=== PATIENT | male | born 1940 | race Hispanic/Latino ===

== ENCOUNTER 2016-12-19 06:26 | Day surgery (SDC) | payer MEDICARE ==
[~2016-12-19 06:26] MED LIST: ANCEF/STERILE WATER 2 GM/20 ML 2 GM/20 ML SYRINGE IV NR; DILAUDID ONE; DIPRIVAN 10 MG/ML IV ONE; NACL 0.9% 1000 ML 1,000 ML IV SCH; VERSED ONE
[2016-12-19 07:10] LABS: Hematocrit 40.3 % (35.5-45.6); Hemoglobin 13.9 gm/dl (11.8-15.2); Mean Corpuscular HGB Conc 34 % (32-34); Mean Corpuscular Hemoglobin 34 pg (28-32); Mean Corpuscular Volume 98 fl (84-94); Platelet Count 186 K/mm3 (140-440); Red Blood Count 4.11 M/mm3 (3.65-5.03); Red Cell Distribution Width 12.3 % (13.2-15.2); White Blood Count 7.7 K/mm3 (4.5-11.0)
[2016-12-19 07:21] LABS: INR 1.04 (0.87-1.13)
[2016-12-19 07:22] LABS: Partial Thromboplastin Time 28.3 Sec. (24.2-36.6)
[2016-12-19 08:09] LABS: BUN/Creatinine Ratio 17.14; Calcium 9.8 mg/dL (8.4-10.2); Chloride 99.3 mmol/L (98-107); Potassium 4.4 mmol/L (3.6-5.0)
[2016-12-19] MEDS ORDERED: SUBLIMAZE ONE (08:18)
[2016-12-19] MEDS ORDERED: VERSED ONE (08:18)
[2016-12-19] MEDS ORDERED: DIPRIVAN 10 MG/ML IV ONE ×5 (08:18→08:31)
--- NOTE | 2016-12-19 08:50 | Anesthesia Consultation ---
Anesthesia Consult and Med Hx Date of service: 12/19/16 - Airway Anesthetic Teeth Evaluation: Good ROM Head & Neck: Adequate Mental/Hyoid Distance: Adequate Mallampati Class: Class II Intubation Access Assessment: Probably Good - Pulmonary Exam CTA: Yes - Cardiac Exam Cardiac Exam: RRR - Pre-Operative Health Status ASA Pre-Surgery Classification: ASA3 Proposed Anesthetic Plan: MAC - Pulmonary Hx Smoking: No - Cardiovascular System Hx Hypertension: Yes (10 years ago) Hx Coronary Artery Disease: Yes Hx Heart Attack/AMI: No Hx Peripheral Vascular Disease: Yes - Central Nervous System Hx Psychiatric Problems: No - Gastrointestinal Hx Gastroesophageal Reflux Disease: Yes - Endocrine Hx Non-Insulin Dependent Diabetes: Yes - Hematic Hx Anemia: No - Other Systems Hx Cancer: No - Additional Comments Anesthesia Medical History Comments: Myasthenia Gravis
--- NOTE | 2016-12-19 08:51 | Anesthesia Day of Surgery ---
Anesthesia Day of Surgery - Day of Surgery Patient Examined: Yes Patient H&P Reviewed: Yes Patient is NPO: Yes Beta Blockers: Yes
[2016-12-19] MEDS ORDERED: HEPARIN 10,000 UNITS/10 ML ONE (09:01)
[2016-12-19] MEDS ORDERED: NEO SYNEPHRINE/NS Syringe(OR USE) IV ONE (09:01)
[2016-12-19] MEDS ORDERED: HEPARIN/NS 5000 UNIT/500ML(CATH LAB) 1,000 ML IR ONE (09:08)
[2016-12-19] MEDS ORDERED: ANCEF/STERILE WATER 2 GM/20 ML 2 GM/20 ML SYRINGE IV ONE (09:08)
[2016-12-19] MEDS: HEPARIN 10,000 UNITS/10 ML ONE ×5 (09:13→11:00)
[2016-12-19] MEDS: XYLOCAINE 1%/ EPI 1:100,000 INFILTRATI ONE ×2 (09:13→09:20)
[2016-12-19] MEDS ORDERED: CALAN ONE (09:47)
[2016-12-19] MEDS ORDERED: NITROGLYCERIN SYRINGE 3 ML ONE ×2 (09:48→09:55)
[2016-12-19] MEDS ORDERED: TRIDIL DRIP 50MG/250ML 0 MG/0 ML BOTTLE ONE (09:53)
[2016-12-19] MEDS ORDERED: NITRO-BID 2% TP ONE (12:11)
--- NOTE | 2016-12-19 12:49 | Post Anesthesia Evaluation ---
- Post Anesthesia Evaluation Patient Participated: Yes Airway Patent: Yes Stable Respiratory Function: Yes Nausea/Vomiting: No Temp > 96.8F: Yes Pain Manageable: Yes Adequeate Hydration: Yes Anesthesia Complications: No Block Receding Appropriately: Not Applicable Patient on Ventilator: No
[2016-12-19] MEDS ORDERED: MORPHINE IV ONE (12:52)
--- NOTE | 2016-12-19 13:07 | Operative Report ---
Operative Report Operative Report: EXAM: 1. Ultrasound-guided access of the right common femoral artery, antegrade 2. Angiography of the right lower extremity 3. Ultrasound-guided access of the right posterior tibial artery, retrograde 4. Flossing of the posterior tibial artery 5. Angioplasty of the posterior tibial artery with a 3 mm angioplasty balloon 6. Angioplasty of the lateral plantar artery and distal posterior tibial artery with a 2.5 mm angioplasty balloon 7. Angioplasty of the distal popliteal artery with a 5 mm angioplasty balloon and subsequently a 6 mm drug-coated balloon 8. Stenting of the proximal posterior tibial artery with a 3 mm x 38 mm resolute drug eluting stent 9. Angioplasty of the posterior tibial artery with a 3 mm angioplasty balloon 10. Closure of the arteriotomy with a 6 Tongan Angio-Seal DATE: 12/19/16 [employer] TEACHER: VIKA GOLDMAN MD INDICATION: Critical limb ischemia of the right lower extremity with gangrene of the right first digit MEDICATIONS: Please see anesthesia report for full details. DEVICES: 2.5 mm angioplasty balloon 3 mm angioplasty balloon 5 mm angioplasty balloon 6 mm drug-coated balloon 3 mm x 38 mm resolute drug-eluting stent CONTRAST: 60 mL of nonionic contrast PROCEDURE: The risks, benefits, and alternatives were discussed with the patient; written informed consent was obtained. The patient's groins were prepped and draped in a sterile fashion in the patient 's right foot was prepped and draped in a sterile fashion. Under direct ultrasound guidance, the right common femoral artery was evaluated. The right common femoral artery was patent. Under direct ultrasound guidance, a 21-gauge micropuncture needle was used to access the right common femoral artery. 0.018 inch wire was passed into the superficial femoral artery. Needle was exchanged for transitional dilator. 0.035 inch wire was passed into the superficial femoral artery. Transitional dilator was exchanged for a 5 Tongan sheath. Angiography was performed of the right lower extremity demonstrating patency of the right superficial femoral artery, mild narrowing throughout the popliteal artery with moderate narrowing in the distal popliteal artery (below the knee), and occlusion of the anterior tibial artery a few centimeters after takeoff with poor reconstitution in the foot, occlusion in the midportion of the peroneal artery with subsequent reconstitution a few centimeters afterwards, and 15 cm of occlusion of the posterior tibial artery, with reconstituted in the mid and distal calf, and subsequently occluded in the foot. The patient was heparinized. Sheath was in exchanged for a 6 Tongan 24 cm sheath. The posterior tibial artery was evaluated under ultrasound and was patent. The mid to distal posterior tibial artery under direct ultrasound guidance was accessed with a 21-gauge micropuncture needle. 0.018 inch wire was passed into the posterior tibial artery. Needle was exchanged for the inner portion of a transitional dilator. Digital subtraction angiography was performed to the transitional dilator demonstrating intra-arterial positioning with severe disease within the posterior tibial as described previously. V18 was then used through the inner dilator, and through the antegrade access, the posterior tibial artery was selected with the vertebral catheter. Digital subtraction angiography was performed to the vertebral catheter confirming position. The V 18 was then used to floss the artery with the vertebral catheter and the wire was extracted. 3 mm angioplasty balloon was advanced over the wire and used to perform angioplasty throughout the accessible portion of the posterior tibial artery. There is a highly resistant lesion, and this area was treated focally with a shorter 3 mm angioplasty balloon which was use at high pressure. Digital subtraction angiography was performed demonstrating minimal residual narrowing of the treated portion of the posterior tibial artery, except for a [id number] dissection at the area that was treated focally. V 18 wire through the femoral access then used to pass a wire into the lateral plantar artery and the inner dilator at the posterior tibial access was removed and a pressure bandage was applied. 2.5 mm angioplasty balloon was used to perform angioplasty from the lateral plantar artery throughout the entirety of the posterior tibial artery. 5 mm angioplasty balloon was then used to perform angioplasty of the popliteal artery. This was subsequently treated with a 6 mm drug-coated protonic splint. Digital subtraction angiography was repeated demonstrating no residual narrowing in the popliteal artery, and minimal residual narrowing in the posterior tibial artery except for the previously mentioned dissection. There was now flow through the lateral plantar artery into the foot. There is now direct flow into the foot. Wire was then exchanged for a choice PT extra-support. 3 mm x 38 mm resolute drug eluting stent was then used to perform stenting at the posterior tibial dissection site. This was performed since the patient had only a single vessel supplying his foot. Digital subtraction angiography was then performed demonstrating prompt flow through the posterior tibial artery through the tibioperoneal trunk and the popliteal artery, but there is a focal area of extravasation at the prior posterior tibial puncture site. 3 mm angioplasty balloon was attempted to be passed through this stent to the puncture site, but got held up on the stent. 0.014 3 mm angioplasty balloon passed easily, and I decided to perform angioplasty within the stent at a higher pressure for longer period of time. Afterwards, I performed angioplasty at the area of prior extravasation for 3 minutes. Digital subtraction angiography was performed demonstrating prompt flow to the posterior tibial artery without having up in the stent without evidence of extravasation with prompt flow into the lateral plantar artery. After achieving this result, all wires and catheters were removed. 0.035 inch Jimenes wire was passed through the sheath and the sheath was then exchanged for 6 Tongan Angio-Seal device which was deployed without issue achieving near immediate hemostasis. No immediate postprocedure complication. Patient tolerated the procedure well. There is a palpable femoral pulse after the procedure. There is a strongly dopplerable posterior tibial pulse. FINDINGS: Please see procedure note above IMPRESSION: Successful revascularization of the right lower extremity with drug-coated balloon intervention on the femoral-popliteal segment, and stenting with angioplasty of the tibial segment. This was performed with pedal and femoral access.
--- NOTE | 2016-12-19 13:08 | Short Stay Summary ---
Short Stay Documentation Date of service: 12/19/16 Narrative H&P: Right lower extremity CLI. - History H&P: obtained from office - Allergies and Medications Current Medications: Allergies No Known Allergies Allergy (Verified 12/19/16 06:58) Home Medications Medication Instructions Recorded Confirmed Last Taken Type Aspirin EC [Aspirin Enteric Coated 81 mg PO QDAY 12/19/16 12/19/16 12/18/16 History TAB] Calcium Carbonate/Vitamin D3 1 each PO QDAY 12/19/16 12/19/16 12/18/16 History [Calcium 500 + D Tablet] Clopidogrel Bisulfate [Clopidogrel] 75 mg PO QDAY 12/19/16 12/19/16 12/18/16 History Gabapentin 300 mg PO BID 12/19/16 12/19/16 12/18/16 History Hydrochlorothiazide [HCTZ] 25 mg PO QDAY 12/19/16 12/19/16 12/18/16 History ISOSORBIDE MONOnitrate [Imdur ER] 30 mg PO DAILY 12/19/16 12/19/16 12/18/16 History Labetalol [Normodyne TAB] 100 mg PO BID 12/19/16 12/19/16 12/18/16 History Losartan [Cozaar] 25 mg PO QDAY 12/19/16 12/19/16 12/18/16 History Metformin HCl [Metformin] 1,000 mg PO BID 12/19/16 12/19/16 12/17/16 History Metoprolol Tartrate [Metoprolol 25 mg PO BID 12/19/16 12/19/16 12/18/16 History Tartrate] NovoLIN 70/30 30 units SC BID 12/19/16 12/19/16 12/18/16 08:00 History Prednisone [Prednisone] 2.5 mg PO Q4W 12/19/16 12/19/16 12/17/16 History Ranitidine HCl [Zantac 150 MG TAB] 150 mg PO BID 12/19/16 12/19/16 12/18/16 History Simvastatin [Simvastatin] 10 mg PO HS 12/19/16 12/19/16 12/18/16 History Terazosin HCl 10 mg PO QHS 12/19/16 12/19/16 12/18/16 History Ubidecarenone [Coq-10] 100 mg PO BID 12/19/16 12/19/16 12/18/16 History Active Medications Sodium Chloride (Nacl 0.9% 1000 Ml) 1,000 mls @ 42 mls/hr IV DIRECT SELIN Last Admin: 12/19/16 08:11 Dose: 42 mls/hr - Physical exam General appearance: no acute distress Lungs: Normal air movement Gastrointestinal: normal Extremities: abnormal (diminished pulses to both lower extremity, right 1st digit gangrene) - Brief post op/procedure progress note Date of procedure: 12/19/16 Pre-op diagnosis: CLI RLE Post-op diagnosis: same Procedure: revascularization Anesthesia: local Surgeon: VIKA GOLDMAN Estimated blood loss: minimal Condition: stable - Hospital course Hospital course: Tolerated procedure well. Doing well from respiratory perspective. Foot feels better. Discharged in 4 hrs after procedure. - Disposition Condition at discharge: Stable Disposition: DISCHARGED TO HOME OR SELFCARE Short Stay Discharge Plan Activity: advance as tolerated Weight Bearing Status: Weight Bear as Tolerated Diet: regular Wound: keep clean and dry Additional Instructions: Make follow up appointment with [phone] Follow up with: KODY LAWTON MD [Primary Care Provider] - 7 Days Forms: Post Arteriogram Instruct, Post Sedation D/C Instructions
[2016-12-19 15:37] VITALS: BP 157/61
--- NOTE | 2016-12-20 07:45 | Vascular Lab Report ---
MISCELLANEOUS VESSEL IDENTIFICATION: COMMENTS ON THE SCAN: The right posterior tibial artery was identified and under real-time ultrasound guidance was cannulated. IMPRESSION: Successful ultrasound guided arterial cannulation.
--- NOTE | 2016-12-20 07:46 | Vascular Lab Report ---
MISCELLANEOUS VESSEL IDENTIFICATION: COMMENTS ON THE SCAN: The right common femoral artery was identified and under real-time ultrasound guidance was cannulated. IMPRESSION: Successful ultrasound guided arterial cannulation.
== END 2016-12-19 16:04 | disposition home or self-care (01) ==
LOC: OPU 06:26
PROVIDERS: ATTEND Radiology Diagnostic Radiology
DX: I70.263 Atherosclerosis of native arteries of extremities with gangrene, bilateral legs (principal); E11.9 Type 2 diabetes mellitus without complications; I10 Essential (primary) hypertension; E78.00 Pure hypercholesterolemia, unspecified; E08.40 Diabetes mellitus due to underlying condition with diabetic neuropathy, unspecified; G70.00 Myasthenia gravis without (acute) exacerbation; K21.9 Gastro-esophageal reflux disease without esophagitis; I25.10 Atherosclerotic heart disease of native coronary artery without angina pectoris; Z86.73 Personal history of transient ischemic attack (TIA), and cerebral infarction without residual deficits; Z79.01 Long term (current) use of anticoagulants; Z79.899 Other long term (current) drug therapy; Z95.1 Presence of aortocoronary bypass graft; Z83.3 Family history of diabetes mellitus; Z83.2 Family history of diseases of the blood and blood-forming organs and certain disorders involving the immune mechanism
CPT/HCPCS: 36415; 37224; 37230; 75710; 76937; 80048; 85027; 85610; 85730; C1725; C1760; C1769; C1874; C1887; C2623; J0690; J1644; J2250; J2270; J2370; J2704; J3010; J7030; Q9967; J1170

== ENCOUNTER 2017-03-28 06:41 | Day surgery (SDC) | payer MEDICARE ==
[~2017-03-28 06:41] MED LIST changes: -DILAUDID ONE; -DIPRIVAN 10 MG/ML IV ONE; -VERSED ONE
[2017-03-28 08:30] LABS: Basophils % (Auto) 0.4 % (0.0-1.8); Eosinophils % (Auto) 2.7 % (0.0-4.3); Hematocrit 37.7 % (35.5-45.6); Mean Corpuscular HGB Conc 34 % (32-34); Mean Corpuscular Hemoglobin 34 pg (28-32); Mean Corpuscular Volume 98 fl (84-94); Platelet Count 178 K/mm3 (140-440); Red Blood Count 3.84 M/mm3 (3.65-5.03); Red Cell Distribution Width 11.9 % (13.2-15.2); White Blood Count 8.1 K/mm3 (4.5-11.0)
[2017-03-28 08:44] LABS: INR 1.13 (0.87-1.13)
[2017-03-28 08:45] LABS: Partial Thromboplastin Time 27.2 Sec. (24.2-36.6)
[2017-03-28] MEDS ORDERED: XYLOCAINE 2% INFILTRATI ONE (11:21)
[2017-03-28] MEDS ORDERED: ANCEF/STERILE WATER 2 GM/20 ML 2 GM/20 ML SYRINGE IV ONE (11:21)
[2017-03-28] MEDS ORDERED: HEPARIN/NS 5000 UNIT/500ML(CATH LAB) 1,000 ML IR ONE (11:22)
[2017-03-28] MEDS: VERSED ONE ×2 (11:40→12:39)
[2017-03-28] MEDS: SUBLIMAZE ONE ×2 (11:40→12:39)
[2017-03-28] MEDS: HEPARIN 10,000 UNITS/10 ML ONE ×2 (12:00→12:46)
[2017-03-28 12:08] LABS: BUN/Creatinine Ratio 22.3; Calcium 9.3 mg/dL (8.4-10.2); Chloride 102.3 mmol/L (98-107); Potassium 4.6 mmol/L (3.6-5.0)
[2017-03-28] MEDS ORDERED: NITROGLYCERIN SYRINGE 9 ML ONE (12:11)
--- NOTE | 2017-03-28 13:24 | Short Stay Summary ---
Short Stay Documentation Date of service: 03/28/17 Narrative H&P: 76 year old male with CLI of the left lower extremity. - History H&P: obtained from office - Allergies and Medications Current Medications: Allergies No Known Allergies Allergy (Verified 12/19/16 06:58) Home Medications Medication Instructions Recorded Confirmed Last Taken Type Aspirin EC [Aspirin Enteric Coated 81 mg PO QDAY 12/19/16 03/28/17 03/28/17 History TAB] Calcium Carbonate/Vitamin D3 1 each PO QDAY 12/19/16 03/28/17 03/28/17 History [Calcium 500 + D Tablet] Clopidogrel Bisulfate [Clopidogrel] 75 mg PO QDAY 12/19/16 03/28/17 03/28/17 History Gabapentin 300 mg PO BID 12/19/16 03/28/17 03/28/17 History Hydrochlorothiazide [HCTZ] 25 mg PO QDAY 12/19/16 03/28/17 03/28/17 History ISOSORBIDE MONOnitrate [Imdur ER] 30 mg PO DAILY 12/19/16 03/28/17 03/28/17 History Labetalol [Normodyne TAB] 100 mg PO BID 12/19/16 03/28/17 03/28/17 History Losartan [Cozaar] 25 mg PO QDAY 12/19/16 03/28/17 03/28/17 History Metformin HCl [Metformin] 1,000 mg PO BID 12/19/16 03/28/17 03/27/17 History Metoprolol Tartrate [Metoprolol 25 mg PO BID 12/19/16 03/28/17 03/28/17 History Tartrate] NovoLIN 70/30 30 units SC BID 12/19/16 03/28/17 03/27/17 History Prednisone [Prednisone] 2.5 mg PO Q4W 12/19/16 03/28/17 03/28/17 History Ranitidine HCl [Zantac 150 MG TAB] 150 mg PO BID 12/19/16 03/28/17 03/28/17 History Simvastatin [Simvastatin] 10 mg PO HS 12/19/16 03/28/17 03/27/17 History Terazosin HCl 10 mg PO QHS 12/19/16 03/28/17 03/27/17 History Ubidecarenone [Coq-10] 100 mg PO BID 12/19/16 03/28/17 03/28/17 History Active Medications Cefazolin Sodium (Ancef/Sterile Water 2 Gm/20 Ml) 2 gm in 20 mls @ 80 mls/hr IV PREOP NR PRN Reason: Protocol Stop: 03/28/17 23:00 Sodium Chloride (Nacl 0.9% 1000 Ml) 1,000 mls @ 42 mls/hr IV DIRECT SELIN Last Admin: 03/28/17 08:57 Dose: 42 mls/hr - Physical exam General appearance: no acute distress Lungs: Normal air movement - Brief post op/procedure progress note Date of procedure: 03/28/17 Pre-op diagnosis: CLI LLE Post-op diagnosis: same Procedure: revasc LLE Anesthesia: local (w/ conscious sedation) Surgeon: VIKA GOLDMAN Estimated blood loss: minimal Condition: stable - Hospital course Hospital course: Patient tolerated procedure well ; no immediate post procedural complications - Disposition Condition at discharge: Stable Disposition: DC-01 TO HOME OR SELFCARE - Discharge Diagnoses (1) Critical lower limb ischemia Status: Acute Short Stay Discharge Plan Activity: advance as tolerated Weight Bearing Status: Weight Bear as Tolerated Diet: renal Wound: keep clean and dry Follow up with: KODY LAWTON MD [Primary Care Provider] - 7 Days
--- NOTE | 2017-03-28 13:24 | Operative Report ---
Operative Report Operative Report: EXAM: 1. Ultrasound-guided access of the right common femoral artery, antegrade 2. Angiography of the right lower extremity 3. Selection of the popliteal artery with angiography of the right lower extremity 4. Selection of the posterior tibial artery 5. Angioplasty of the right posterior tibial artery with a 2-2.5 mm angioplasty balloon 6. Stenting of the right posterior tibial with a 3.0 x 38 mm resolute drug- eluting stent 7. Angioplasty of the proximal right posterior artery with a 3 mm angioplasty balloon 8. Selection of the peroneal artery with attempted revascularization 9. Stenting of the right posterior tibial artery with a 3.0 x 15 mm resolute drug-eluting stent DATE: 03/28/17 [employer]UR[employer] CHECKER: VIKA GOLDMAN MD INDICATION: Critical limb ischemia of the right lower extremity with interval healing since the prior examination that has subsequently stalled MEDICATIONS: Please see nursing report for full details. DEVICES: 2-2.5 mm angioplasty balloon 3 mm angioplasty balloon 3 mm x 15 mm resolute drug-eluting stent 3 mm x 38 mm resolute drug-eluting stent CONTRAST: 75 mL of nonionic contrast PROCEDURE: The risks, benefits, and alternatives were discussed with the patient; written informed consent was obtained. The patient's groins were prepped and draped in a sterile fashion. The right common femoral artery was evaluated with ultrasound was patent. Under direct ultrasound guidance, the right common femoral artery was punctured and antegrade direction with a 21-gauge mitral puncture needle. 0.018 inch wire was passed into the superficial femoral artery. Needle was exchanged for a 5 Japanese transitional dilator. Wire was exchanged for a Jimenes wire. Transitional dilator was exchanged for a 5 Japanese sheath. Digital subtraction angiography was performed demonstrating mild right proximal superficial femoral artery disease with patency of the right profundofemoral artery and distal common femoral artery. The rest of the superficial femoral artery was patent. Popliteal artery was patent. There is significant vascular disease below the knee with occlusion of the anterior tibial artery a few centimeters after its takeoff. The tibioperoneal trunk is heavily calcified with mild atherosclerotic disease. The peroneal artery is occluded a few centimeters after its takeoff. The posterior tibial artery is the only vessel that provides flow into the foot, and has a severe narrowing within the ostium, and proximal portion of the vessel , with patency of the stented segment, and a focal moderate narrowing a few cm after the indwelling stent without any restenosis. The distal posterior tibial artery has a focal moderate to severe grade narrowing at the level of the ankle. The patient was fully heparinized. Over 0.035 inch wire, the sheath was exchanged for 45 cm [place] destination. The posterior tibial artery was selected with a combination of wires and catheters with a 0.018 inch Trailblazer at the level of the right common plantar artery. Digital subtraction angiography was performed demonstrating flow into the foot. 600 g of nitroglycerin was administered. 0.014 inch choice PT support wire was advanced to the wire. 2-2.5 mm angioplasty balloon was used to perform angioplasty from the level below the ankle throughout the length of the posterior tibial artery with the 2 mm angioplasty balloon used at the level near the ankle and the 2.5 mm portion of the balloon used for the rest the vessel. Digital subtraction angiography demonstrated improved result with residual focal moderate narrowing at the ostium of the right posterior tibial artery and mild residual narrowing of the right proximal posterior tibial artery. The rest of the vessel had minimal to mild residual narrowing. Given the recurrence of the disease at this location, I decided to place another drug-eluting stent across the stenotic area to prevent recurrence of disease. 3 x 38 mm resolute drug-eluting stent was applied in the proximal right posterior tibial artery. 3 mm angioplasty balloon was then used to perform angioplasty of the right posterior tibial artery ostium. Digital subtraction angiography was performed demonstrating only minimal right ostial posterior tibial artery residual narrowing without narrowing of the rest of the vessel with excellent flow into the foot. Wires and catheters were then used to engage the peroneal artery. Multiple wires were used in attempt across the total occlusion which was unsuccessful. Digital subtraction angiography was then repeated demonstrating recoil of the right ostial posterior tibial artery lesion which is now severe. The lesion was crossed and a 0.014 inch choice PT was passed into the posterior tibial artery. Using roadmap imaging, the right ostial posterior tibial artery lesion was then stented with an additional 3 mm x 15 mm resolute drug-eluting stent. Digital subtraction angiography was performed demonstrating resolution of all narrowing within the posterior tibial artery except for minimal to mild distal disease. All wires and catheters were removed. Sheath was exchanged for a 6 Japanese standard sheath. ACT was obtained and subsequently the sheath was pulled and pressure was held until hemostasis was achieved. Pressure dressing applied. Patient tolerated the procedure well. No immediate postprocedure complication. The patient a palpable right posterior tibial artery at the conclusion of the procedure. FINDINGS: Please see procedure note above. IMPRESSION: 1. Successful revascularization of the right posterior tibial artery using angioplasty and drug eluting stents. 2. Successful selection of the right peroneal artery.
[2017-03-28] MEDS ORDERED: HALFPRIN EC PO ONE (14:19)
[2017-03-28] MEDS ORDERED: HALFPRIN EC PO SCH (15:00)
--- NOTE | 2017-03-28 17:10 | Event Note ---
Date: 03/28/17 Patient noted to have subcutaneous hematoma in his groin measuring a proximally 4 cm in diameter. No significant extravasation noted. Pressure dressing will be reapplied and patient will be watched for an additional hour. There is no significant change, the patient will be discharged home with the pressure dressing intact to be removed tomorrow. Patient was counseled on the need to rest on his discharge to allow his puncture site to heal.
[2017-03-28 18:56] VITALS: BP 151/61
== END 2017-03-28 19:10 | disposition home or self-care (01) ==
LOC: OPU 06:41
PROVIDERS: ATTEND Radiology Diagnostic Radiology
DX: I70.213 Atherosclerosis of native arteries of extremities with intermittent claudication, bilateral legs (principal); E11.9 Type 2 diabetes mellitus without complications; I10 Essential (primary) hypertension; E78.00 Pure hypercholesterolemia, unspecified; E08.40 Diabetes mellitus due to underlying condition with diabetic neuropathy, unspecified; Z79.01 Long term (current) use of anticoagulants; Z79.82 Long term (current) use of aspirin; Z79.899 Other long term (current) drug therapy; Z86.73 Personal history of transient ischemic attack (TIA), and cerebral infarction without residual deficits; Z95.1 Presence of aortocoronary bypass graft; Z98.890 Other specified postprocedural states; Z83.3 Family history of diabetes mellitus; Z83.2 Family history of diseases of the blood and blood-forming organs and certain disorders involving the immune mechanism
CPT/HCPCS: 37230; 75710; 75774; 76937; 80048; 85347; 85610; 85730; C1725; C1769; C1874; C1887; C1894; J0690; J1644; J2250; J3010; J7030; Q9967

== ENCOUNTER 2017-07-10 09:03 | Day surgery (SDC) | payer MEDICARE ==
[2017-07-10 10:03] LABS: Basophils % (Auto) 0.5 % (0.0-1.8); Eosinophils % (Auto) 4.5 % (0.0-4.3); Hematocrit 42.3 % (35.5-45.6); Hemoglobin 14.4 gm/dl (11.8-15.2); Mean Corpuscular HGB Conc 34 % (32-34); Mean Corpuscular Hemoglobin 34 pg (28-32); Mean Corpuscular Volume 99 fl (84-94); Platelet Count 197 K/mm3 (140-440); Red Blood Count 4.28 M/mm3 (3.65-5.03); Red Cell Distribution Width 11.8 % (13.2-15.2); White Blood Count 8.5 K/mm3 (4.5-11.0)
[2017-07-10 10:14] LABS: INR 0.98 (0.87-1.13)
[2017-07-10 10:15] LABS: Partial Thromboplastin Time 27.5 Sec. (24.2-36.6)
[2017-07-10 10:21] LABS: BUN/Creatinine Ratio 20.71; Calcium 9.6 mg/dL (8.4-10.2); Chloride 100.9 mmol/L (98-107); Potassium 4.2 mmol/L (3.6-5.0)
[2017-07-10] MEDS ORDERED: ANCEF/STERILE WATER 2 GM/20 ML 2 GM/20 ML SYRINGE IV ONE (11:07)
[2017-07-10] MEDS ORDERED: XYLOCAINE 2% INFILTRATI ONE (11:07)
[2017-07-10] MEDS ORDERED: HEPARIN 10,000 UNITS/10 ML ONE (11:07)
[2017-07-10] MEDS ORDERED: HEPARIN/NS 5000 UNIT/500ML(CATH LAB) 1,000 ML IR ONE (11:07)
[2017-07-10] MEDS: SUBLIMAZE ONE ×2 (11:20→11:35)
[2017-07-10] MEDS: VERSED ONE ×2 (11:20→12:00)
[2017-07-10] MEDS ORDERED: NITROGLYCERIN SYRINGE 3 ML ONE ×2 (11:58→12:19)
[2017-07-10] MEDS ORDERED: NITROGLYCERIN SYRINGE UD ONE (12:16)
--- NOTE | 2017-07-10 12:29 | Short Stay Summary ---
Short Stay Documentation Date of service: 07/10/17 Narrative H&P: 77-year-old male with right lower extremity critical limb ischemia who presents for revascularization after abnormal ultrasound findings. - History H&P: obtained from office - Allergies and Medications Current Medications: Allergies No Known Allergies Allergy (Verified 12/19/16 06:58) Home Medications Medication Instructions Recorded Confirmed Last Taken Type Aspirin EC [Aspirin Enteric Coated 81 mg PO QDAY 12/19/16 07/10/17 07/09/17 History TAB] Calcium Carbonate/Vitamin D3 1 each PO QDAY 12/19/16 07/10/17 07/09/17 History [Calcium 500 + D Tablet] Clopidogrel Bisulfate [Clopidogrel] 75 mg PO QDAY 12/19/16 07/10/17 07/09/17 History Hydrochlorothiazide [HCTZ] 25 mg PO QDAY 12/19/16 07/10/17 07/09/17 History ISOSORBIDE MONOnitrate [Imdur ER] 30 mg PO DAILY 12/19/16 07/10/17 07/09/17 History Labetalol [Normodyne TAB] 100 mg PO BID 12/19/16 07/10/17 07/09/17 History Losartan [Cozaar] 25 mg PO QDAY 12/19/16 07/10/17 07/09/17 History Metformin HCl [Metformin] 1,000 mg PO BID 12/19/16 07/10/17 07/09/17 History Metoprolol Tartrate [Metoprolol 25 mg PO BID 12/19/16 07/10/17 07/09/17 History Tartrate] NovoLIN 70/30 30 units SC BID 12/19/16 03/28/17 07/09/17 07:00 History 10 UNITS Ranitidine HCl [Zantac 150 MG TAB] 150 mg PO BID 12/19/16 07/10/17 07/09/17 History Simvastatin [Simvastatin] 10 mg PO HS 12/19/16 07/10/17 07/09/17 History Ubidecarenone [Coq-10] 100 mg PO BID 12/19/16 07/10/17 07/09/17 History Tamsulosin [Flomax] 0.4 mg PO QDAY 07/10/17 07/10/17 07/09/17 History Active Medications Cefazolin Sodium (Ancef/Sterile Water 2 Gm/20 Ml) 2 gm in 20 mls @ 80 mls/hr IV PREOP NR PRN Reason: Protocol Stop: 07/10/17 15:00 Last Admin: 07/10/17 11:24 Dose: 20 mls Sodium Chloride (Nacl 0.9% 1000 Ml) 1,000 mls @ 42 mls/hr IV DIRECT SELIN Last Admin: 07/10/17 10:37 Dose: 42 mls/hr - Physical exam General appearance: no acute distress HEENT: PERRLA Lungs: Normal air movement Gastrointestinal: normal Extremities: normal temperature, normal color - Brief post op/procedure progress note Date of procedure: 07/10/17 Pre-op diagnosis: Critical limb ischemia of the right lower extremity Post-op diagnosis: same Procedure: Revascularization of the right lower extremity Anesthesia: local (w/ conscious sedation) Surgeon: VIKA GOLDMAN Estimated blood loss: minimal Condition: stable - Hospital course Hospital course: Tolerated antegrade puncture without issue. Successful revascularization. If no issues after 5 hrs of hold, then can be discharge. - Disposition Condition at discharge: Stable Disposition: DC-01 TO HOME OR SELFCARE Short Stay Discharge Plan Activity: advance as tolerated Weight Bearing Status: Weight Bear as Tolerated Diet: regular Wound: keep clean and dry Follow up with: KODY LAWTON MD [Primary Care Provider] - 7 Days
--- NOTE | 2017-07-10 12:43 | Operative Report ---
Operative Report Operative Report: EXAM: 1. Ultrasound-guided access of the right common femoral artery, antegrade. 2. Angiography of the right lower extremity 3. Selection of the right posterior tibial artery 4. Angioplasty of the right posterior tibial artery with a 2 mm x 100 mm Angiosculpt cutting balloon 5. Angioplasty of the right posterior tibial artery with a 2.5 mm x 120 mm angioplasty balloon 6. Injection of 600 g of nitroglycerin in the popliteal artery 7. Selection of the right anterior tibial artery with angiography DATE: 07/10/17 [employer] BLASTING: VIKA GOLDMAN MD INDICATION: Critical limb ischemia of the right lower extremity after multiple successful endovascular procedures. Wound is healing. Abnormal ultrasound suggesting restenosis. MEDICATIONS: Please see nursing report for full details. DEVICES: 2 mm x 100 mm angioscope cutting balloon 2.5 mm x 120 mm angioplasty balloon CONTRAST: Please see cardiac cath rn report for full details. PROCEDURE: Risks, benefits, and alternatives were discussed with the patient; written informed consent was obtained. The patient was prepped and draped in a sterile fashion and brought to the angiography suite where his right groin and left groin were prepped and draped. The right common femoral artery was evaluated with ultrasound was patent. Under direct ultrasound guidance, the right common femoral artery was accessed with a 21-gauge needle in an antegrade direction. 0.018 inch wire was passed into the superficial femoral artery. Needle was exchanged for a transitional dilator. Digital subtraction angiography was performed to the transitional dilator demonstrating runoff of the right lower extremity. The right superficial femoral artery and popliteal artery had areas of plaque without any hemodynamically significant narrowing. The right anterior tibial artery was occluded soon afterwards takeoff and reconstituted at the dorsalis pedis and the foot. The peroneal artery was occluded soon after takeoff and reconstituted in a distal portion in the calf. The posterior tibial artery was approximately patent. The stented portion of the vessel was patent throughout its course. The midportion of the posterior tibial artery was narrowed multifocal areas up to 90%. The distal portion of the anterior tibial artery was narrowed in multiple segments up to 90%. The plantar arteries were diminutive in size measuring up to 0.5 mm. The patient was heparinized with 5000 units of heparin. Amplatz wire was passed into the popliteal artery and the sheath was exchanged for a 6 Khmer 45 cm pedicle destination in the popliteal artery. Using an angled catheter and a 0.014 inch extra-support choice PT, the right posterior tibial artery was selected and the lateral plantar artery was selected. Digital subtraction angiography was performed demonstrating intraluminal positioning of the wire. Catheter was exchanged for a 2 mm x 100 mm angiosculpt cutting balloon. Angioplasty was performed of the distal and mid posterior tibial upper artery up to the stents within the posterior tibial artery. The stents within the posterior tibial artery had no evidence of restenosis. Digital subtraction angiography demonstrated improvement in caliber of the vessel, but there was still 30% restenosis present. 2.5 mm angioplasty balloon was then used to perform angioplasty over the previously treated segment with a 2 mm angioplasty balloon. 600 g of nitroglycerin were then injected to the sheath in the popliteal artery. Digital subtraction angiography now demonstrated prompt flow through the entirety of the posterior tibial artery, but the plantar arteries were still diminutive in size. I decided not to intervene on that plantar arteries due to their tiny size. The anterior tibial artery was then selected and I attempted to cross the occlusion with a V 18, but the wire would not pass. Angiography was performed in the anterior tibial artery confirming position of the vessel. After multiple attempts, I abandoned efforts at recanalizing the anterior tibial artery. 200 g of nitroglycerin were reinjected in the popliteal artery and the sheath. ACT was obtained, and subsequently sheath was exchanged for 6 Khmer standard sheath. After sheath exchange, ACT result was obtained, and the sheath was pulled and pressure was held until hemostasis was achieved. Pressure dressing applied. Patient tolerated the procedure well. No immediate post procedural competition. FINDINGS: Please see procedure note above. IMPRESSION: 1. Successful revascularization with angioplasty of the right posterior tibial artery. 2. Successful selection of the right anterior tibial artery.
[2017-07-10 18:00] VITALS: BP 147/60
== END 2017-07-10 18:21 | disposition home or self-care (01) ==
LOC: CATHLABREC 09:03
PROVIDERS: ATTEND Radiology Diagnostic Radiology
DX: I70.213 Atherosclerosis of native arteries of extremities with intermittent claudication, bilateral legs (principal); I10 Essential (primary) hypertension; E78.00 Pure hypercholesterolemia, unspecified; E08.40 Diabetes mellitus due to underlying condition with diabetic neuropathy, unspecified; Z86.73 Personal history of transient ischemic attack (TIA), and cerebral infarction without residual deficits; Z95.1 Presence of aortocoronary bypass graft; Z98.890 Other specified postprocedural states; Z79.899 Other long term (current) drug therapy; Z79.01 Long term (current) use of anticoagulants; Z79.4 Long term (current) use of insulin
CPT/HCPCS: 36415; 37228; 80048; 85025; 85347; 85610; 85730; C1725; C1769; C1887; J0690; J1644; J2250; J3010; J7030; Q9967